=== PATIENT | female | born 1985 | race Caucasian/White ===

== ENCOUNTER → 2022-10-03 10:46 | Outpatient (BNVA) | payer OTHER, SELFPAY | PROVIDERS: Family Provider Electrodiagnostic Medicine; PCP Electrodiagnostic Medicine; Visit Provider Family Medicine | DX: Z34.90 Encounter for supervision of normal pregnancy, unspecified, unspecified trimester | CPT/HCPCS: 80307; 81000; 81025; 84144; 84156; 84443; 85025; 86592; 86762; 86803; 86850; 86900; 87086; 87340; 87491; 87591; 87624; 87806 ==

== ENCOUNTER → 2022-10-10 09:43 | Outpatient (BNVA) | payer OTHER, SELFPAY | PROVIDERS: Family Provider Electrodiagnostic Medicine; PCP Electrodiagnostic Medicine; Visit Provider Family Medicine | DX: Z34.80 Encounter for supervision of other normal pregnancy, unspecified trimester (principal) | CPT/HCPCS: 84156 ==

== ENCOUNTER 2022-10-20 06:43 | Outpatient (CLI) | payer OTHER, SELFPAY ==
--- NOTE | 2022-10-20 07:00 | USR_ITS ---
PROCEDURE INFORMATION: Exam: US First Trimester, Transabdominal Exam date and time: 10/20/2022 7:03 AM Age: 37 years old Clinical indication: Screening exam; Routine US, uterus; Additional info: Dating US. LMP: 07/15/2022 TECHNIQUE: Imaging protocol: Real-time transabdominal obstetrical ultrasound of the maternal pelvis and a first trimester , less than 14 weeks 0 days, with image documentation. COMPARISON: No relevant prior studies available. FINDINGS: Gestation: Monochorionic/monoamniotic ovoid gestational sac. Small fetus is seen. Transverse position. Embryonic/ heart rate: 150 bpm. Extra-embryonic membranes/Placenta: The placenta is noted to be posterior and grade 1. There may be placenta previa, however this is early to establish. Recommend follow-up. No subchorionic bleed. Amniotic fluid: Amniotic fluid and extra-amniotic fluid is normal for gestational age. BIOMETRY: Gestational age (AUA): The estimated gestational age is 13 weeks and 3 days by crown rump length of 7.21 cm. The LOGAN is April 24, 2023. MATERNAL: Uterus: The anteverted uterus appears unremarkable. Cervix: Cervical length measures 3.3 cm. Right ovary/adnexa: Not well seen on the exam. Color Doppler blood flow is seen in the right adnexal region. Left ovary/adnexa: The left ovary measures 2.5 x 1.1 x 2.8 cm. Normal color Doppler blood flow demonstrated at the time of the exam. No adnexal mass. Intraperitoneal space: There is no free fluid in the cul-de-sac. Notes: Follow-up may be performed with sonography. US/US OB <= 14 weeks fetus [id number] IMPRESSION: 1. Single IUP with estimated gestational age of 13 weeks and 3 days. heart rate at 150. bpm. No sonographic evidence of hemorrhage. Posterior placenta. Possible placenta previa. Recommend follow-up. 2. Unremarkable sonographic appearance of the left ovary.
== END 2022-10-20 06:44 | disposition home or self-care (01) ==
LOC: RAD 06:45
PROVIDERS: PCP Electrodiagnostic Medicine; Visit Provider Family Medicine
DX: Z34.80 Encounter for supervision of other normal pregnancy, unspecified trimester (principal)
CPT/HCPCS: 76801; 80307; 81000; 81025; 84144; 84156; 84443; 85025; 86592; 86762; 86803; 86850; 86900; 87086; 87340; 87491; 87591; 87624; 87806

== ENCOUNTER 2022-12-06 08:10 | Outpatient (CLI) | payer OTHER, SELFPAY ==
--- NOTE | 2022-12-06 08:30 | US_ITS ---
WS: [id number] OBSTETRICAL ULTRASOUND COMPLETE HISTORY: Anatomy COMPARISON: 10/20/2022 Single intrauterine gestation in Cephalic presentation. Cervix is Closed and normal length. Cervical length is 4.1 cm. Normal amount of amniotic fluid surrounds the fetus. Placenta: Posterior, no previa or abruption. Placenta grade 1 Heart: 141 BPM. Four chambers are identified. RIGHT and LEFT outflow tracts are unremarkable. Screening survey is slight limited due to maternal body habitus. Anatomy: Intracranial structures and spine are normal. kidneys, stomach and urinary bladd er are unremarkable. Abdominal wall, three-vessel cord and cord insertion site are normal. 4 extremities are present. profile: Unremarkable. Gender: Female measurements: BPD = 4.8 cm = 20w4d; HC = 17.5 cm = 20w0d; AC = 15.0 cm = 20w1d; FL = 3.4 cm = 20w6d; EFW: 354 g. Biometry is internally concordant. AGA by ultrasound: 20w3d LOGAN by ultrasound: 04/22/2023 IMPRESSION: 1. Single intrauterine gestation of 20w3d with an LOGAN of 04/22/2023. Appropriate growth since the rst trimester ultrasound. 2. Unremarkable screening survey of anatomy.
== END 2022-12-06 08:11 | disposition home or self-care (01) ==
PROVIDERS: PCP Electrodiagnostic Medicine; Visit Provider Family Medicine
DX: Z34.82 Encounter for supervision of other normal pregnancy, second trimester (principal)
CPT/HCPCS: 76805

== ENCOUNTER → 2023-01-19 08:14 | Outpatient (BNVA) | payer OTHER, SELFPAY | PROVIDERS: PCP Electrodiagnostic Medicine; Visit Provider Family Medicine | DX: Z34.80 Encounter for supervision of other normal pregnancy, unspecified trimester (principal); Z23 Encounter for immunization | CPT/HCPCS: 82950 ==

== ENCOUNTER → 2023-01-24 08:49 | Outpatient (BNVA) | payer OTHER, SELFPAY | PROVIDERS: PCP Electrodiagnostic Medicine; Visit Provider Family Medicine | DX: Z34.90 Encounter for supervision of normal pregnancy, unspecified, unspecified trimester | CPT/HCPCS: 82951; 82952 ==

== ENCOUNTER → 2023-02-21 09:15 | Outpatient (BNVA) | payer OTHER, SELFPAY | PROVIDERS: PCP Electrodiagnostic Medicine; Visit Provider Family Medicine | DX: Z51.81 Encounter for therapeutic drug level monitoring (principal) | CPT/HCPCS: 85025 ==

== ENCOUNTER → 2023-03-22 11:53 | Outpatient (BNVA) | payer OTHER, SELFPAY | PROVIDERS: PCP Electrodiagnostic Medicine; Visit Provider Family Medicine | DX: Z34.90 Encounter for supervision of normal pregnancy, unspecified, unspecified trimester (principal) | CPT/HCPCS: 87081 ==

== ENCOUNTER 2023-04-17 12:06 | Inpatient (IN) | payer OTHER, SELFPAY ==
[2023-04-17] VITALS (44 sets, daily range): BP systolic 91–153; BP diastolic 50–85; PULSE 68–141; TEMP 36.4–36.6; O2SAT 96–100; BMI 41.7
[2023-04-17] MEDS: miSOPROStol 100 mcg tablet 25 MCG VAGINAL ×2 (14:18→18:36)
[2023-04-17 14:53] LABS: Basophils % 0.4 %; Eosinophils # 0.1 10^3/uL (0.0-0.8); Eosinophils % 0.5 %; Hematocrit 34.5 % (36-47); Lymphocytes # 1.3 10^3/uL (0.8-4.8); Lymphocytes % 11.8 %; Mean Corpuscular HGB Conc 33.9 g/dL (30-55); Mean Corpuscular Hemoglobin 31.5 pg (27-33); Mean Corpuscular Volume 92.7 fl (85-98); Mean Platelet Volume 9.5 fL (7.4-10.4); Monocytes # 0.9 10^3/uL (0.2-0.9); Monocytes % 8.1 %; Neutrophils # 8.64 10^3/uL (1.8-7.7); Neutrophils % 78.1 %; Nucleated Red Blood Cells % 0 %; Platelet Count 203 10^3/cmm (157-399); Red Blood Count 3.72 10^6/uL (3.85-5.65); Red Cell Distribution Width 13.2 % (12.1-15.1); White Blood Count 11.07 10^3/uL (3.29-11.43)
--- NOTE | 2023-04-17 17:23 | P.HP_ITS ---
Providers/Chief Complaint 2 Admitting Physician: Jack Canela MD Primary Care Provider: Isaías Hu DO Chief Complaint: IOL History of Present Illness Amie Patel is a 38 year old @ 39.3 wks by LMP c/w 13 wk US. Preg c/b h/o gHTN, obesity, Vyvanse use in early . The patient presented to labor and delivery on the early afternoon of 04/17/2023 for an elective scheduled induction of labor. She has a history of delivering infants that are large for gestational age. For this reason it was felt best to deliver in the 39th week to decrease risk for a significantly large . The patient has been feeling well and denies any problems. She denies fevers, cough, shortness of breath, vomiting, diarrhea, constipation, dysuria, leakage of fluid, vaginal bleeding. Upon arrival to labor and delivery her initial blood pressure was 147/80, however it has decreased into the normal range of 120s over 60s. The patient's initial exam was 2/40/-2/med/mid. Medications/Allergies Home Medications Medication Instructions Recorded Confirmed Last Taken Type doxylamine succinate 25 mg tablet See Rx Instructions .Route 10/03/22 04/12/23 Unknown Rx .COMPLEX PRN allergy symptoms #30 tabs prenat.vits,damian,mdc-aptc-monnj 1 tab PO DAILY 10/03/22 04/12/23 Unknown History pyridoxine (vitamin B6) 100 mg 100 mg PO BID PRN Nausea #60 tabs 10/03/22 04/12/23 Unknown Rx tablet ferrous sulfate 325 mg (65 mg 325 mg PO DAILY #30 tabs 02/26/23 04/12/23 Unknown Rx iron) tablet Allergies Allergy/AdvReac Type Severity Reaction Status Date / Time atomoxetine [From Strattera] Allergy Intermediate Urticaria/S Verified 10/03/22 11:19 welling PFSH Acute 2 PFSH: Medical History No pertinent past medical history Surgical History Hx of dilation and curettage History of cholecystectomy Social History Smoking and tobacco/nicotine status: never used tobacco/nicotine Alcohol intake: former Former alcohol use details: Quit when found out she was Substance/Drug Use: never Current occupation: Works at [employer] Vitals/I&O/Wt Last Vital Signs Temp 97.5 F L 04/17/23 15:25 Pulse 87 04/17/23 16:52 BP 127/66 04/17/23 16:52 Physical Exam 2 Narrative: General: Alert and oriented x3 Eyes: Pupils equal round and reactive to light and accommodation Mouth: Mucous membranes moist, pharynx non-erythematous Cardiac: Regular rate and rhythm without murmurs Lungs: Clear to auscultation bilaterally without wheezes, crackles or rhonchi Abdomen: Soft, non-tender, fundus consistent with gestational age Extremities: Trace edema in the bilateral lower extremities Data 04/17/23 14:35 A&P Assessment and plan (1) Supervision of normal intrauterine in multigravida: heart tones are category 1 at this time. The patient is doing well overall. She will be given Cytotec with 1 dose every 4 hours up to 3 doses. The patient may use fentanyl as needed for IV pain relief. She may receive a laboring epidural when she reaches 3 cm dilation or beyond. Routine intrapartum management was discussed. All questions were answered. The patient is in agreement with current plan of care. Attestations 2 Medical Necessity Statement*: The patient will be here for greater than 2 midnights due to routine intrapartum and management of labor and delivery. Coding Level of Care Code Acute Code for Chg Fwd Diagnoses Supervision of normal intrauterine in multigravida Z34.80
--- NOTE | 2023-04-17 19:37 | P.ANESASSM_ITS ---
Pre-Anesthetic Assessment Height/Weight: Height 1.63 m Weight 110.223 kg Temp Pulse BP O2 Del Method 97.9 F 88 125/58 Room Air 04/17/23 18:16 04/17/23 18:17 04/17/23 18:17 04/17/23 12:47 Epidural Familial anesthetic complications: None Was Beta Adeline taken within 24 hours: N/A Was Clonidine taken within 24 hours: N/A Last intake: 1730 solids and liquid Social No alcohol and No tobacco Exam alert, oriented x 3, clear to auscultation bilaterally and regular rate & rhythm Airway Submandibular: within normal limits (Some TMJ) Mallampati: Class II Dentition: full History/ROS No significant history except as noted and No significant complaints Pulmonary None reported CV/HEM Anemia and None reported None reported Hepatic None reported GI None reported Metabolic Morbid Obesity [facility] None reported Neuropsych Anxiety and Headache Anesthetic Plan ASA status: 3 Anesthesia: Anesthesia Evaluation, General and Regional (specify below) (Epidural) Risk of > 500 ml blood loss (7ml/kg in children): No Medications/Allergies Home Medications Medication Instructions Recorded Confirmed Last Taken Type prenat.vits,damian,brh-xhkp-fyjou 1 tab PO DAILY 10/03/22 04/12/23 Unknown History ferrous sulfate 325 mg (65 mg 325 mg PO DAILY #30 tabs 02/26/23 04/12/23 Unknown Rx iron) tablet Allergies Allergy/AdvReac Type Severity Reaction Status Date / Time atomoxetine [From Strattera] Allergy Intermediate Urticaria/S Verified 10/03/22 11:19 welling Current Medications Generic Name Dose Route Start Last Admin Trade Name Farzana PRN Reason Stop Dose Admin Misoprostol 25 mcg 04/17/23 13:45 04/17/23 18:36 Misoprostol 100 Mcg Tablet VAGINAL 04/17/23 21:46 25 mcg Q4H ASH Administration PFSH Anesthesia Medical History No pertinent past medical history Surgical History Hx of dilation and curettage History of cholecystectomy Social History Smoking and tobacco/nicotine status: never used tobacco/nicotine Alcohol intake: former Former alcohol use details: Quit when found out she was Substance/Drug Use: never Current occupation: Works at [employer] Female Reproductive History : 5 Data Anesthesia 04/17/23 14:35 Short CBC 04/17/23 Range/Units 14:35 WBC 11.07 (3.29-11.43) 10^3/uL Hgb 11.70 (11.27-16.99) g/dL Hct 34.5 L (36-47) % MCV 92.7 (85-98) fl Plt Count 203 (157-399) 10^3/cmm Neut % (Auto) 78.1 % Neut # (Auto) 8.64 H (1.8-7.7) 10^3/uL Blood Bank 04/17/23 14:35 Blood Type O Positive Rho(D) Type Rh positive Antibody Screen Negative Cardiac Studies: 2 No Data to Display
[2023-04-17] MEDS: lactated ringers 1,000 ML 999 ML IV ×2 (22:00→22:59)
[2023-04-17] MEDS: ROPivacaine syringe 100 MG/50 ML SYRINGE 10 MG EPIDURAL (23:25)
--- NOTE | 2023-04-17 23:34 | ANES.PROC ---
Anesthesia Procedures Procedure/Date: 04/17/23 Epidural: Time Out Performed: Yes Consents Signed: Procedure Consent Consent: requested by attending/covering physician, from patient, risks and benefits reviewed and patient agrees to proceed Lumbar Level: L3-L4 Epidural position: sitting Epidural procedure: sterile prep of area, 1% lidocaine to numb the area, 18 g needle, neg for paresthesia, test dose given, 1.5% xylocaine 1:200k epi, placed PCEA, no systemic response, sterile dressing applied and 0.2% Ropiavacaine @ mls/hr (10) Additional Comments: LUZ at 5cm, cath at 10cm, bolused 5mls of 2% lido PF
[2023-04-18] VITALS (46 sets, daily range): BP systolic 86–155; BP diastolic 47–81; PULSE 60–98; RESP 16; TEMP 36.2–36.8; O2SAT 97–100
[2023-04-18] MEDS: lactated ringers 1,000 ML 125 ML IV (02:29)
[2023-04-18] MEDS: ROPivacaine syringe 100 MG/50 ML SYRINGE 10 MG EPIDURAL (04:05)
[2023-04-18] MEDS: dextrose 5%-lactated ringers 1,000 ML 125 ML IV (04:19)
[2023-04-18] MEDS: oxytocin 30 UNIT/500 ML BAG 600 UNIT IV (04:44)
--- NOTE | 2023-04-18 04:45 | PM.DELIVERY ---
Delivery Note: Date of delivery: April 18, 2023 Pre-delivery diagnoses: 1. Intrauterine at 39.4 weeks gestation 2. Obesity Post-delivery diagnoses: 1. Intrauterine status post spontaneous vaginal delivery at 39.4 weeks gestation 2. Obesity 3. Delivery of healthy infant female weighing 7 pounds 2 ounces with Apgars of 9 and 9 Procedure: Spontaneous vaginal delivery Delivering Physician: Jack Canela MD Estimated blood loss (mL): 150 Findings: 1. Intact placenta with central umbilical cord insertion site 2. Healthy infant female weighing 7 pounds 2 ounces with Apgars of 9 and 9 Pre-Delivery Course: Amie Patel is a 38 year old G5 now P3 status post spontaneous vaginal delivery @ 39.4 wks by LMP c/w 13 wk US. Preg c/b h/o gHTN, obesity, Vyvanse use in early . The patient presented to labor and delivery on the early afternoon of 04/17/2023 for an elective scheduled induction of labor. She has a history of delivering infants that are large for gestational age. For this reason it was felt best to deliver in the 39th week to decrease risk for a significantly large infant. The patient was given her first dose of Cytotec around 2:30 in the afternoon on 04/17/2023. She responded well and had regular contractions. They started spaced out and she received her second dose approximately 4 hours later. With this she began to have a regular contraction pattern and made change on her own. She received a laboring epidural when she reached approximately 4 cm dilation. The patient had spontaneous rupture membranes at 3:07 AM on 04/18/2023. Clear fluid was noted. There was a deceleration after this and a few light discolorations that self resolved. 's baseline did drop into the 120s after this but there were good accelerations and a category 1 tracing. The patient then made quick change and was complete by 4:17 AM on 04/18/2023. Delivery: The patient began pushing at 4:25 AM on 04/18/2023. The patient pushed well and the delivered in the OA position at 4:27 AM on 04/18/2023. There was no nuchal cord. The right shoulder was anterior shoulder and it delivered with downward pressure. The rest of the infant delivered without complication. The infant's mouth and nose were bulb suction by myself and the was crying immediately after delivery. The was placed on the mother's chest where the nurses were waiting to care for her. The umbilical cord was clamped after approximately 1 minute by myself and cut by the infant's father. Cord blood was obtained. The cord was then drained of blood and traction was placed on the umbilical cord. The placenta delivered without complication at 4:30 AM on 04/18/2023. The placenta was noted to be intact with a central umbilical cord insertion site. IV Pitocin was bolused. The cervix was inspected and no lacerations were noted. Vaginal wall was inspected and a couple of very small abrasions were noted in the periurethral area, otherwise there were no tears. No suturing was needed. Mother's bleeding decreased well. Currently both the mother and infant are doing well. History History History 5 Term 3 0 Miscarriages/Ectopic 2 Living Children 3 Past Pregnancies Del. Date GA/Weeks Outcome Route Wt Inf Gender Labor Lgth Comp. Anesthesia Location 04/16/04 39 live - full term Vaginal 8 lb 7 oz Male 22 hrs 02/02/11 8 spontaneous 11/21/12 39 live - full term Vaginal 8 lb 7 oz Male 22-24 hrs 04/18/23 39 live - full term Vaginal 7 lb 2 oz Female 14 hrs regional [facility] Delivery Date: 04/16/04 Last Updated by: Jack Canela MD Induced for concern for elevated BP that could lead to preeclampsia Delivery Date: 02/02/11 Last Updated by: Jack Canela MD D&C Delivery Date: 11/21/12 Last Updated by: Jack Canela MD Induced, no HTN or complications - [place] Delivery Date: 04/18/23 Last Updated by: Jack Canela MD Induced due to prior large infant, no significant complications A&P Assessment and plan (1) Spontaneous vaginal delivery: Coding Level of Care Code Acute Code for Chg Fwd Diagnoses Spontaneous vaginal delivery O80
[2023-04-18] MEDS: HYDROcodone-acetaminophen 5-325 mg Tablet PO (07:34)
--- NOTE | 2023-04-18 07:46 | ANE.PACU2 ---
Inpatient post-anesthesia follow up: Airway intact: Yes Vital signs: Temperature 97.6 F Pulse Rate 75 Respiratory Rate 16 Blood Pressure 127/78 Pulse Oximetry 97 Oxygen Delivery Me thod Room Air Oxygen Flow Rate Fraction of Inspir ed Oxygen Hydration adequate: Yes Nausea and vomiting: No Pain level: 2 Mental status: Baseline Epidural Start/End: Epidural Start Date: 04/17/23 Epidural Start Time: 11:15 Epidural End Date: 04/18/23 Epidural End Time: 04:45
[2023-04-18] MEDS: prenatal vitamin Capsule 1 CAP PO (09:26)
[2023-04-18] MEDS: docusate sodium 100 mg Capsule PO ×2 (09:26→20:34)
[2023-04-18] MEDS: ibuprofen 800 mg tablet PO ×3 (09:26→20:33)
[2023-04-18 18:13] LABS: Hematocrit 31.2 % (36-47); Mean Corpuscular HGB Conc 33.7 g/dL (30-55); Mean Corpuscular Hemoglobin 31.5 pg (27-33); Mean Corpuscular Volume 93.7 fl (85-98); Mean Platelet Volume 9.7 fL (7.4-10.4); Platelet Count 185 10^3/cmm (157-399); Red Blood Count 3.33 10^6/uL (3.85-5.65); White Blood Count 17.58 10^3/uL (3.29-11.43)
[2023-04-19 06:41] VITALS: BP 127/85; PULSE 80
[2023-04-19] MEDS: prenatal vitamin Capsule 1 CAP PO (09:05)
[2023-04-19] MEDS: ibuprofen 800 mg tablet PO (09:06)
[2023-04-19] MEDS: docusate sodium 100 mg Capsule PO (09:06)
--- NOTE | 2023-04-19 09:38 | PM.DCS ---
Discharge Providers Date of Admission: 04/17/23 12:06 Date of Discharge: April 19, 2023 Attending Provider at Admission: Jack Canela MD Attending Provider at Discharge: Jack Canela MD Primary Care Provider: Isaías Hu DO Diagnoses at Discharge Discharge Diagnosis (1) Spontaneous vaginal delivery: Status: Acute Other Information Additional DC diagnoses/information: 1. Intrauterine status post spontaneous vaginal delivery at 39.4 weeks gestation 2. Obesity 3. Delivery of healthy infant female weighing 7 pounds 2 ounces with Apgars of 9 and 9 Reason for Visit Reason for Visit: IOL Hospital Course Hospital Course Amie Patel is a 38 year old G5 now P3 status post spontaneous vaginal delivery @ 39.4 wks by LMP c/w 13 wk US. Preg c/b h/o gHTN, obesity, Vyvanse use in early . The patient presented to labor and delivery on the early afternoon of 04/17/2023 for an elective scheduled induction of labor. She has a history of delivering infants that are large for gestational age. For this reason it was felt best to deliver in the 39th week to decrease risk for a significantly large . The patient was given her first dose of Cytotec around 2:30 in the afternoon on 04/17/2023. She responded well and had regular contractions. They started spaced out and she received her second dose approximately 4 hours later. With this she began to have a regular contraction pattern and made change on her own. She received a laboring epidural when she reached approximately 4 cm dilation. The patient had spontaneous rupture membranes at 3:07 AM on 04/18/2023. Clear fluid was noted. There was a deceleration after this and a few light discolorations that self resolved. 's baseline did drop into the 120s after this but there were good accelerations and a category 1 tracing. The patient then made quick change and was complete by 4:17 AM on 04/18/2023. The patient began pushing at 4:25 AM on 04/18/2023. The patient pushed well and the infant delivered in the OA position at 4:27 AM on 04/18/2023. The patient had no tears. Her bleeding decreased well. , the patient is doing well overall. Her bleeding is decreasing well. She is ambulating, voiding, passing gas and tolerating food by mouth. She does have some pain in the left lower back that radiates around to the abdomen. It starts in the area of her epidural. This is likely irritation from the epidural. We will watch it as an outpatient. Outside of this she is doing well and we will plan to see her at 6 weeks or sooner if needed. The patient and her are in agreement with the current plan of care. Physical Exam Narrative: General: Alert and oriented x3 Cardiac: Regular rate and rhythm without murmurs Lungs: Clear to auscultation bilaterally without wheezes, crackles or rhonchi Abdomen: Soft, mild tenderness over uterus. The uterus is firm and 2 cm below the umbilicus. Extremities: +1 pitting edema in the bilateral lower extremities Urinary Catheter Management: Bey: Cath Placed During This Visit: yes, but has since been removed by the nurse Reason for Continuing Indwelling Catheter: Decision to DC Catheter Urinary Catheter Date of Insertion: 04/18/23 Urinary Catheter Time of Insertion: 00:00 Date Urinary Catheter Removed: 04/18/23 Time Urinary Catheter Discontinued: 04:18 Discharge Data Studies Completed and Pending Laboratory Results WBC 17.58 10^3/uL (3.29-11.43) H 04/18/23 17:52 RBC 3.33 10^6/uL (3.85-5.65) L 04/18/23 17:52 Hgb 10.50 g/dL (11.27-16.99) L 04/18/23 17:52 Hct 31.2 % (36-47) L 04/18/23 17:52 MCV 93.7 fl (85-98) 04/18/23 17:52 MCH 31.5 pg (27-33) 04/18/23 17:52 MCHC 33.7 g/dL (30-55) 04/18/23 17:52 RDW 13.0 % (12.1-15.1) 04/18/23 17:52 Plt Count 185 10^3/cmm (157-399) 04/18/23 17:52 MPV 9.7 fL (7.4-10.4) 04/18/23 17:52 Neut % (Auto) 78.1 % 04/17/23 14:35 Lymph % (Auto) 11.8 % 04/17/23 14:35 Otoe % (Auto) 8.1 % 04/17/23 14:35 Eos % (Auto) 0.5 % 04/17/23 14:35 Baso % (Auto) 0.4 % 04/17/23 14:35 Neut # (Auto) 8.64 10^3/uL (1.8-7.7) H 04/17/23 14:35 Lymph # (Auto) 1.3 10^3/uL (0.8-4.8) 04/17/23 14:35 [place]e # (Auto) 0.9 10^3/uL (0.2-0.9) 04/17/23 14:35 Eos # (Auto) 0.1 10^3/uL (0.0-0.8) 04/17/23 14:35 Baso # (Auto) 0.0 10^3/uL (0.0-0.1) 04/17/23 14:35 Nucleated RBC % (auto) 0 % 04/17/23 14:35 Nucleated RBCs # 0.0 /100WBC 04/17/23 14:35 Blood Type O Positive 04/17/23 14:35 Rho(D) Type Rh positive 04/17/23 14:35 Antibody Screen Negative 04/17/23 14:35 Vitals Last Vital Signs Temp 98.1 F 04/18/23 22:35 Pulse 80 04/19/23 06:41 Resp 16 04/18/23 22:35 BP 127/85 04/19/23 06:41 Pulse Ox 97 04/18/23 06:30 O2 Del Method Room Air 04/18/23 15:15 Discharge Plan Discharge Patient Disposition: Home Condition: Good Prescriptions: New ibuprofen 800 mg Tablet 800 mg PO TID Qty: 30 0RF Continued prenat.vits,damian,nwi-bged-ffsmd Tablet 1 tab PO DAILY ferrous sulfate 325 mg (65 mg iron) tablet 325 mg PO DAILY Qty: 30 3RF Discharge Orders: Discharge Order (Routine); Ordered 04/19/23 Ordered By: Jack Canela Referrals: Jack Canela MD [Physician] - 05/31/23 9:30 am Discharge Diet: Regular Patient Instructions: Ibuprofen (By mouth), Depression (DC), Expression, Collection and Storage of Breast Milk (DC), How to Increase Your Milk Supply (DC), Preeclampsia and Eclampsia After Delivery (GEN), Breast Care for the Mother (DC), Opioid Safety, [facility], Abnormal Bleeding Activity Restrictions/Additional Instructions: Nothing per vagina for 6 weeks. I would recommend showers instead of baths for the first 6 weeks. Discharge Attestations Time Spent in Discharge Care*: greater than 30 min Quality Metrics Clinical Quality Measures [ No reported AMI, CVA or VTE this stay] Coding Level of Care Code Acute Code for Chg Fwd Diagnoses Spontaneous vaginal delivery O80
[2023-04-19 10:50] VITALS: BP 149/91; PULSE 110; RESP 17; TEMP 36.8; O2SAT 98
== END 2023-04-19 10:51 | disposition home or self-care (01) | DRG 807 ==
LOC: OPOB 12:07 → OBGYN 12:07
PROVIDERS: Admitting Provider Family Medicine; PCP Electrodiagnostic Medicine; Visit Provider Family Medicine
DX: O13.4 Gestational [pregnancy-induced] hypertension without significant proteinuria, complicating childbirth (principal); Z37.0 Single live birth; O99.214 Obesity complicating childbirth; E66.01 Morbid (severe) obesity due to excess calories; O99.02 Anemia complicating childbirth; O76 Abnormality in fetal heart rate and rhythm complicating labor and delivery; Z3A.39 39 weeks gestation of pregnancy
CPT/HCPCS: 36415; 51702; 59025; 59409; 85025; 85027; 86850; 86900; 99211; J2590; J2795; J7120; J7121